=== PATIENT | female | born 1955 ===

== ENCOUNTER 2017-03-06 11:46 | Emergency (ER) | payer OTHER ==
[2017-03-06 12:29] VITALS: BP 122/79; PULSE 61; RESP 16; TEMP 97.9; O2SAT 97
[2017-03-06] MEDS ORDERED: Naproxen 550 mg Tab PO STA (12:49)
[2017-03-06] MEDS ORDERED: Naproxen 550 mg Tab PO ONE (13:02)
--- NOTE | 2017-03-06 13:12 | C.PDOC ---
History Of Present Illness 61 yr old female presents to the ER with right shoulder pain for the past 1 week. Patient states the pain is worse with movement of the arm and worse when she is lifting objects at work. Patient denies injury/falls, chest pain, cough, SOB, back pain, neck pain, sensory changes. Time Seen by Provider: 03/06/17 12:27 Chief Complaint (Nursing): Upper Extremity Problem/Injury History Per: Patient History/Exam Limitations: no limitations Onset/Duration Of Symptoms: Persistent (1 week) Quality: "Pain" Severity: Moderate Exacerbating Factor(s): Movement Past Medical History Reviewed: Historical Data, Nursing Documentation, Vital Signs Vital Signs: Last Vital Signs Temp 97.9 F 03/06/17 12:27 Pulse 61 03/06/17 12:27 Resp 16 03/06/17 12:27 BP 122/79 03/06/17 12:27 Pulse Ox 97 03/06/17 14:36 Family History: States: No Known Family Hx Review Of Systems Except As Marked, All Systems Reviewed And Found Negative. Cardiovascular: Negative for: Chest Pain Respiratory: Negative for: Cough, Shortness of Breath Musculoskeletal: Positive for: Shoulder Pain (Right shoulder ). Negative for: Neck Pain, Back Pain Skin: Negative for: Rash Neurological: Negative for: Weakness, Numbness Physical Exam - Physical Exam Appears: Well, Non-toxic, No Acute Distress Skin: Normal Color, Warm, Dry, No Rash Head: Normacephalic Eye(s): bilateral: Normal Inspection Oral Mucosa: Moist Neck: Normal, Normal ROM, Supple Chest: No Tenderness Cardiovascular: Rhythm Regular Respiratory: Normal Breath Sounds, No Rales, No Rhonchi, No Stridor, No Wheezing Extremity: Normal ROM, Tenderness (Right Shoulder - Tender to palpation at the posterier aspect), No Pedal Edema, Capillary Refill (<2 sec all digits), No Deformity, No Swelling Extremity: Bilateral: Atraumatic, Normal Color And Temperature, Normal ROM Pulses: Left Radial: Normal, Right Radial: Normal Neurological/Psych: Oriented x3, Normal Motor, Normal Sensation ED Course And Treatment O2 Sat by Pulse Oximetry: 97 (RA) Pulse Ox Interpretation: Normal Progress Note: Patient given PO Naprosyn and Flexeril. Reevaluation Time: 13:10 Reassessment Condition: Improved (On reassessment, patient states her pain has improved and she feels better. Patient given Rxs for Naprosyn and Flexeril, and was instructed to follow up with PMD/clinic in 1-2 days. She understands she should return to ED if symptoms worsen.) Disposition Counseled Patient/Family Regarding: Diagnosis, Need For Followup, Rx Given - Disposition Referrals: [facility] [Outside] Disposition: HOME/ ROUTINE Disposition Time: 13:10 Condition: STABLE Additional Instructions: SEGUIMIENTO CON ROSEN DOCTOR / CLNICA EN 1-2 CHEUNG DEVUELVA A LA CELIA DE EMERGENCIA SI LOS SNTOMAS empeoraran USE EL [facility] SEGN LO DIRIGIDO Prescriptions: Cyclobenzaprine [Cyclobenzaprine HCl] 10 mg PO BID PRN #15 tab PRN Reason: Muscle Spasm Naproxen [Naprosyn Tab] 375 mg PO BID PRN #20 tab PRN Reason: pain Instructions: Shoulder Pain (ED) Print Language: LAO - POA Present On Arrival: None - Clinical Impression Clinical Impression: Muscle strain, shoulder region - Scribe Statement The provider has reviewed the documentation as recorded by the Isabellaibcandice Martin Provider Attestation: All medical record entries made by the Isabellaibe were at my direction and personally dictated by me. I have reviewed the chart and agree that the record accurately reflects my personal performance of the history, physical exam, medical decision making, and the department course for this patient. I have also personally directed, reviewed, and agree with the discharge instructions and disposition.
== END 2017-03-06 13:38 | disposition home or self-care (01) ==
LOC: C.ER 11:46
DX: S46.911A Strain of unspecified muscle, fascia and tendon at shoulder and upper arm level, right arm, initial encounter (principal); X50.0XXA Overexertion from strenuous movement or load, initial encounter; Y93.89 Activity, other specified; Y92.89 Other specified places as the place of occurrence of the external cause